=== PATIENT | female | born 1980 | race Asian ===

== ENCOUNTER 2017-06-11 15:21 | Observation (INO) | payer MEDICAID ==
[~2017-06-11] VITALS: Ht 157.5 cm; Wt 52.4 kg
[2017-06-11 15:32] VITALS: BP 101/55; PULSE 71; RESP 18; TEMP 98.1; O2SAT 99
[2017-06-11] MEDS ORDERED: SODIUM CHLOR 0.9% 1000 ML INJ 1,000 ML IV SCH (16:21)
[2017-06-11] MEDS ORDERED: FAMOTIDINE 20 MG/2 ML VIAL IV PUSH ONE (16:30)
[2017-06-11] MEDS ORDERED: MORPHINE SULFATE 4 MG/ML INJ IV PUSH ONE (16:30)
[2017-06-11] MEDS ORDERED: ONDANSETRON HCL 4 MG/2 ML VIAL IVP ONE (16:30)
[2017-06-11] MEDS ORDERED: SODIUM CHLORIDE 0.9% FLUSH 10 ML FLUSH IV FLUSH PRN (16:30)
--- NOTE | 2017-06-11 16:30 | PD ---
HPI Chief Complaint: Abdominal Pain Time Seen by Provider: 16:16 Travel History International Travel<30 days: No Contact w/Intl Traveler<30days: No Traveled to known affect area: No History of Present Illness HPI 36-year-old female complains of abdominal pain with nausea vomiting. Patient states that the symptoms started this morning. Patient states the pain in cramping pain diffuse over the abdomen. Patient denies any pain radiation. Patient denies any dysuria or frequency. Patient denies any vaginal discharge or bleeding. Patient denies any fever chills. Patient states that her last menstruation period was last week. Patient states that her last period was late. Patient denies any GI issues in the past. PFSH Past Medical History Diminished Hearing: No Tetanus Vaccination: Unknown Influenza Vaccination: No ?: Not LMP: LAST WEEK Social History Alcohol Use: No Tobacco Use: No Substance Use: No Allergies-Medications (Allergen,Severity, Reaction): Coded Allergies: No Known Allergies (Unverified , 06/11/17) Reported Meds & Prescriptions Reported Meds & Active Scripts Active No Active Prescriptions or Reported Medications Review of Systems General / Constitutional: No: Fever Eyes: No: Visual changes HENT: No: Headaches Cardiovascular: No: Chest Pain or Discomfort Respiratory: No: Shortness of Breath Gastrointestinal: Positive: Nausea, Vomiting, Abdominal Pain Genitourinary: No: Dysuria Musculoskeletal: No: Pain Skin: No Rash Neurologic: No: Weakness Psychiatric: No: Depression Endocrine: No: Polydipsia Hematologic/Lymphatic: No: Easy Bruising Physical Exam Narrative GENERAL: Well-nourished, well-developed patient. SKIN: Focused skin assessment warm/dry. HEAD: Normocephalic. EYES: No scleral icterus. No injection or drainage. NECK: Supple, trachea midline. No JVD or lymphadenopathy. CARDIOVASCULAR: Regular rate and rhythm without murmurs, gallops, or rubs. RESPIRATORY: Breath sounds equal bilaterally. No accessory muscle use. GASTROINTESTINAL: Abdomen soft, nondistended. Patient has mild diffuse tenderness over the abdomen. No rebound tenderness. No mass. MUSCULOSKELETAL: No cyanosis, or edema. BACK: Nontender without obvious deformity. No CVA tenderness. Data Data Last Documented VS Vital Signs Date Time Temp Pulse Resp B/P (MAP) Pulse Ox O2 Delivery O2 Flow Rate FiO2 06/11/17 15:32 98.1 71 18 101/55 (70) 99 Orders Orders Complete Blood Count With Diff (06/11/17 16:21) Comprehensive Metabolic Panel (06/11/17 16:21) Lipase (06/11/17 16:21) Urinalysis - C+S If Indicated (06/11/17 16:21) Ct Abd/Pel W Iv Contrast(Rout) (06/11/17 16:21) Iv Access Insert/Monitor (06/11/17 16:21) Ecg Monitoring (06/11/17 16:21) Oximetry (06/11/17 16:21) Morphine Inj (Morphine Inj) (06/11/17 16:30) Ondansetron Inj (Zofran Inj) (06/11/17 16:30) Sodium Chlor 0.9% 1000 Ml Inj (Ns 1000 M (06/11/17 16:21) Sodium Chloride 0.9% Flush (Ns Flush) (06/11/17 16:30) Famotidine Inj (Pepcid Inj) (06/11/17 16:30) Ed Urine Pregnancytest Poc (06/11/17 16:21) Iohexol 350 Inj (Omnipaque 350 Inj) (06/11/17 17:46) Labs Laboratory Tests Test 06/11/17 16:21 06/11/17 16:55 Urine Color YELLOW Urine Turbidity CLEAR Urine pH 7.0 Urine Specific [place] 1.027 Urine Protein NEG mg/dL Urine Glucose (UA) NEG mg/dL Urine Ketones 40 mg/dL Urine Occult Blood TRACE Urine Nitrite NEG Urine Bilirubin NEG Urine Leukocyte Esterase NEG Urine RBC 0-3 /hpf Urine WBC 0-2 /hpf Urine Squamous Epithelial Cells 6-8 /hpf Urine White Blood Cell Casts NONE /lpf Urine Mucus FEW /lpf Microscopic Urinalysis Comment CULT NOT INDICATED White Blood Count 24.5 TH/MM3 Red Blood Count 4.58 MIL/MM3 Hemoglobin 12.9 GM/DL Hematocrit 38.8 % Mean Corpuscular Volume 84.7 FL Mean Corpuscular Hemoglobin 28.2 PG Mean Corpuscular Hemoglobin Concent 33.3 % Red Cell Distribution Width 11.4 % Platelet Count 272 TH/MM3 Mean Platelet Volume 8.2 FL Neutrophils (%) (Auto) 87.7 % Lymphocytes (%) (Auto) 4.9 % Monocytes (%) (Auto) 1.9 % Eosinophils (%) (Auto) 0.6 % Basophils (%) (Auto) 4.9 % Neutrophils # (Auto) 21.5 TH/MM3 Lymphocytes # (Auto) 1.2 TH/MM3 Monocytes # (Auto) 0.5 TH/MM3 Eosinophils # (Auto) 0.1 TH/MM3 Basophils # (Auto) 1.2 TH/MM3 CBC Comment DIFF FINAL Differential Comment Blood Urea Nitrogen 16 MG/DL Creatinine 0.70 MG/DL Random Glucose 115 MG/DL Total Protein 9.0 GM/DL Albumin 4.3 GM/DL Calcium Level 8.5 MG/DL Alkaline Phosphatase 74 U/L Aspartate Amino Transf (AST/SGOT) 38 U/L Alanine Aminotransferase (ALT/SGPT) 48 U/L Total Bilirubin 0.5 MG/DL Sodium Level 134 MEQ/L Potassium Level 4.1 MEQ/L Chloride Level 103 MEQ/L Carbon Dioxide Level 21.5 MEQ/L Anion Gap 10 MEQ/L Estimat Glomerular Filtration Rate 96 ML/MIN Lipase 68 U/L MDM Medical Decision Making Medical Screen Exam Complete: Yes Emergency Medical Condition: Yes Interpretation(s) 1830 p.m. Last Impressions Abdomen/Pelvis CT 06/11/17 1621 Signed Impressions: Service Date/Time: Sunday, June 11, 2017 17:42 - CONCLUSION: 1. Enlarged left gonadal vein with prominent left pelvic varicosities. In the appropriate clinical setting, findings could represent pelvic congestion syndrome. Patient' s discomfort would be in the lower left abdomen, particularly at the end of the day. 2. Small, 1.7 cm probable follicular type cysts in the right ovary. Retroverted uterus. 3. Otherwise negative Stephen Becker MD 1832 PM. CBC WBC 24.5. 87 neutrophil. CMP within normal limit. UA is negative. Differential Diagnosis Differential diagnosis including gastritis, PUD, appendicitis, cholecystitis, colitis, UTI, pyelonephritis, nephrolithiasis. Narrative Course 36-year-old female with abdominal pain and nausea vomiting since this morning. Normal saline solution 1 25 cc an hour. Morphine 2 mg IV. Zofran 4 mg IV. Pepcid 20 mg IV. Scripts No Active Prescriptions or Reported Meds Rakesh Cardoza MD Jun 11, 2017 16:30
[2017-06-11 17:10] LABS: AUTOMATED NEUTROPHIL # 21.5 TH/MM3 (1.8-7.7); BASOPHIL # 1.2 TH/MM3 (0-0.2); BASOPHIL % 4.9 % (0.0-2.0); EOSINOPHIL # 0.1 TH/MM3 (0-0.4); EOSINOPHIL % 0.6 % (0.0-4.0); HEMATOCRIT 38.8 % (35.0-46.0); HEMOGLOBIN 12.9 GM/DL (11.6-15.3); LYMPH % 4.9 % (9.0-44.0); LYMPHOCYTE # 1.2 TH/MM3 (1.0-4.8); MEAN CELL VOLUME 84.7 FL (80.0-100.0); MEAN CORPUSCULAR HEMOGLOBIN 28.2 PG (27.0-34.0); MEAN CORPUSCULAR HGB CONC 33.3 % (32.0-36.0); MEAN PLATELET VOLUME 8.2 FL (7.0-11.0); MONO % 1.9 % (0.0-8.0); MONOCYTE # 0.5 TH/MM3 (0-0.9); NEUT % 87.7 % (16.0-70.0); PLATELET COUNT 272 TH/MM3 (150-450); RED BLOOD COUNT 4.58 MIL/MM3 (4.00-5.30); RED CELL DISTRIBUTION WIDTH 11.4 % (11.6-17.2); WHITE BLOOD COUNT 24.5 TH/MM3 (4.0-11.0)
[2017-06-11 17:22] LABS: CHLORIDE 103 MEQ/L (98-107); SODIUM (NA) 134 MEQ/L (136-145)
[2017-06-11 17:24] LABS: BILIRUBIN, URINE NEG (NEG); GLUCOSE,URINE NEG (NEG); KETONE, URINE 40 mg/dL (NEG); NITRITE,URINE NEG (NEG); URINE LEUKOCYTE ESTERASE NEG (NEG)
[2017-06-11 17:25] LABS: CALCIUM 8.5 MG/DL (8.5-10.1)
[2017-06-11 17:26] LABS: ALBUMIN 4.3 GM/DL (3.4-5.0); BICARBONATE 21.5 MEQ/L (21.0-32.0); BLOOD UREA NITROGEN 16 MG/DL (7-18); GLUCOSE,RANDOM 115 MG/DL (74-106); LIPASE 68 U/L (73-393)
[2017-06-11 17:29] LABS: ALT (GPT) 48 U/L (10-53); AST (GOT) 38 U/L (15-37); GLOMERULAR FILTRATION RATE 96 ML/MIN (>89)
[2017-06-11 17:30] LABS: TOTAL BILIRUBIN ADULT 0.5 MG/DL (0.2-1.0)
[2017-06-11 17:32] LABS: ALKALINE PHOSPHATASE 74 U/L (45-117)
[2017-06-11 17:40] LABS: BLOOD, URINE TRACE (NEG)
[2017-06-11] MEDS ORDERED: IOHEXOL 350 MG/ML 10 ML VIAL (for RAD DIAG) IVCONTRAST ONE (17:46)
[2017-06-11 17:55] LABS: MUCUS URINE FEW /lpf (OCC); URINE COLOR YELLOW (YELLW/STRAW)
[2017-06-11 18:00] LABS: RBC, URINE 0-3 /hpf (0-3); WBC, URINE 0-2 /hpf (0-5)
--- NOTE | 2017-06-11 18:06 | RADRPT ---
EXAM DATE/TIME: 06/11/2017 17:42 This report includes an Addendum and supersedes previous reports for this exam. [facility] COMPARISON: No previous studies available for comparison. INDICATIONS : Diffuse abdominal pain with nausea, vomiting and diarrhea. IV CONTRAST: 95 cc Omnipaque 350 (iohexol) IV ORAL CONTRAST: No oral contrast ingested. RADIATION DOSE: 4.80 CTDIvol (mGy) MEDICAL HISTORY : None SURGICAL HISTORY : None. ENCOUNTER: Initial ACUITY: 1 day PAIN SCALE: 4/10 LOCATION: Bilateral abdomen TECHNIQUE: Volumetric scanning of the abdomen and pelvis was performed. Using automated exposure control and ad justment of the mA and/or kV according to patient size, radiation dose was kept as low as reasonably achievable to obtain optimal diagnostic quality images. DICOM format image data is available electro nically for review and comparison. FINDINGS: LOWER LUNGS: The visualized lower lungs are clear. LIVER: Homogeneous density without lesion. There is no dilation of the biliary tree. No calcified gallston es. SPLEEN: Normal size without lesion. PANCREAS: Within normal limits. KIDNEYS: Normal in size and shape. There is no mass, stone or hydronephrosis. ADRENAL GLANDS: Within normal limits. VASCULAR: There is no aortic aneurysm. BOWEL/MESENTERY: The stomach, small bowel, and colon demonstrate no acute abnormality. There is no free intraperitone al air or fluid. ABDOMINAL WALL: Within normal limits. RETROPERITONEUM: There is no lymphadenopathy. BLADDER: No wall thickening or mass. REPRODUCTIVE: Uterus is retroverted. Prominent varicosities predominantly in the left-side of the pelvis with a mar kedly dilated left gonadal vein. Probable small 1.7 cm follicular type cysts in the right ovary. INGUINAL: There is no lymphadenopathy or hernia. MUSCULOSKELETAL: Within normal limits for patient age. CONCLUSION: 1. Enlarged left gonadal vein with prominent left pelvic varicosities. In the appropriate clinical se tting, findings could represent pelvic congestion syndrome. Patient's discomfort would be in the lowe r left abdomen, particularly at the end of the day. 2. Small, 1.7 cm probable follicular type cysts in the right ovary. Retroverted uterus. 3. Otherwise negative Stephen Becker MD on June 11, 2017 at 18:00 Board Certified Radiologist. This report was verified electronically. ADDENDUM: The appendix is flipped into the right midabdomen with tip lying along side the liver edge. It is dil ated with mild surrounding indurative changes. The appearance would be consistent with appendicitis. Dr. Galindo was notified of the findings. Reid Ricardo MD on June 11, 2017 at 21:13 Board Certified Radiologist. This report was verified electronically.
[2017-06-11 18:56] LABS: LYMPHOCYTES 9 % (9-44); MONOCYTES 2 % (0-8); NEUTROPHIL # MANUAL DIFF 21.8 TH/MM3 (1.8-7.7); POLYS (SEG NEUTROPHILS) 89 % (16-70)
[2017-06-11 19:12] VITALS: BP 100/65; PULSE 76; RESP 14; O2SAT 99
--- NOTE | 2017-06-11 21:14 | RADRPT ---
EXAM DATE/TIME: 06/11/2017 19:15 [facility] COMPARISON: CT ABDOMEN & PELVIS W CONTRAST, June 11, 2017, 17:42. INDICATIONS : Right upper quadrant pain. MEDICAL HISTORY : Right upper quadrant pain. Nausea/vomiting. SURGICAL HISTORY : None. ENCOUNTER: Initial ACUITY: 1 day PAIN SCORE: 6/10 LOCATION: Right upper quadrant MEASUREMENTS: LIVER: 15.9 cm length COMMON DUCT: 2 mm RIGHT KIDNEY: 11.4 x 4.5 x 4.1 cm FINDINGS: LIVER: Normal echotexture without focal lesion or ductal dilatation. COMMON DUCT: No intraluminal mass or stone visualized. GALLBLADDER: Contains no stones, demonstrates no wall thickening or pericholecystic fluid. PANCREAS: The visualized portions are within normal limits. RIGHT KIDNEY: No evidence of hydronephrosis, stone, or mass. CONCLUSION: Normal examination. Reid Ricardo MD on June 11, 2017 at 21:08 Board Certified Radiologist. This report was verified electronically.
[2017-06-11] MEDS ORDERED: MORPHINE SULFATE 2 MG/ML INJ IV PUSH PRN (21:30)
[2017-06-11] MEDS ORDERED: ONDANSETRON HCL 4 MG/2 ML VIAL IV PUSH PRN (21:30)
[2017-06-11] MEDS: PIPERACIL-TAZO 3.375 GM PREMIX 50 ML IV SCH (21:30)
[2017-06-11 22:13] VITALS: BP 101/53; TEMP 98.5
--- NOTE | 2017-06-11 22:50 | PD ---
Data Data Last Documented VS Vital Signs Date Time Temp Pulse Resp B/P (MAP) Pulse Ox O2 Delivery O2 Flow Rate FiO2 06/11/17 19:12 76 14 100/65 (77) 99 Room Air 06/11/17 15:32 98.1 Orders Orders Complete Blood Count With Diff (06/11/17 16:21) Comprehensive Metabolic Panel (06/11/17 16:21) Lipase (06/11/17 16:21) Urinalysis - C+S If Indicated (06/11/17 16:21) Ct Abd/Pel W Iv Contrast(Rout) (06/11/17 16:21) Iv Access Insert/Monitor (06/11/17 16:21) Ecg Monitoring (06/11/17 16:21) Oximetry (06/11/17 16:21) Morphine Inj (Morphine Inj) (06/11/17 16:30) Ondansetron Inj (Zofran Inj) (06/11/17 16:30) Sodium Chlor 0.9% 1000 Ml Inj (Ns 1000 M (06/11/17 16:21) Sodium Chloride 0.9% Flush (Ns Flush) (06/11/17 16:30) Famotidine Inj (Pepcid Inj) (06/11/17 16:30) Ed Urine Pregnancytest Poc (06/11/17 16:21) Iohexol 350 Inj (Omnipaque 350 Inj) (06/11/17 17:46) Us Abdomen Gallbladder (06/11/17 18:40) Admit Order (Ed Use Only) (06/11/17 21:27) Dext 5%-Nacl 0.9% 1000 Ml Inj (D5w-Ns 10 (06/11/17 21:30) Morphine Inj (Morphine Inj) (06/11/17 21:30) Piperacil-Tazo 3.375 Gm Premix (Zosyn 3. (06/11/17 21:30) NPO (06/11/17 21:27) Ondansetron Inj (Zofran Inj) (06/11/17 21:30) Vital Signs (Adult) Q4H (06/11/17 21:27) Diet Npo (06/12/17 Breakfast) Activity Oob With Assistance (06/11/17 21:27) Labs Laboratory Tests Test 06/11/17 16:21 06/11/17 16:55 Urine Color YELLOW Urine Turbidity CLEAR Urine pH 7.0 Urine Specific [place] 1.027 Urine Protein NEG mg/dL Urine Glucose (UA) NEG mg/dL Urine Ketones 40 mg/dL Urine Occult Blood TRACE Urine Nitrite NEG Urine Bilirubin NEG Urine Leukocyte Esterase NEG Urine RBC 0-3 /hpf Urine WBC 0-2 /hpf Urine Squamous Epithelial Cells 6-8 /hpf Urine White Blood Cell Casts NONE /lpf Urine Mucus FEW /lpf Microscopic Urinalysis Comment CULT NOT INDICATED White Blood Count 24.5 TH/MM3 Red Blood Count 4.58 MIL/MM3 Hemoglobin 12.9 GM/DL Hematocrit 38.8 % Mean Corpuscular Volume 84.7 FL Mean Corpuscular Hemoglobin 28.2 PG Mean Corpuscular Hemoglobin Concent 33.3 % Red Cell Distribution Width 11.4 % Platelet Count 272 TH/MM3 Mean Platelet Volume 8.2 FL Neutrophils (%) (Auto) 87.7 % Lymphocytes (%) (Auto) 4.9 % Monocytes (%) (Auto) 1.9 % Eosinophils (%) (Auto) 0.6 % Basophils (%) (Auto) 4.9 % Neutrophils # (Auto) 21.5 TH/MM3 Lymphocytes # (Auto) 1.2 TH/MM3 Monocytes # (Auto) 0.5 TH/MM3 Eosinophils # (Auto) 0.1 TH/MM3 Basophils # (Auto) 1.2 TH/MM3 CBC Comment AUTO DIFF Differential Total Cells Counted 100 Neutrophils % (Manual) 89 % Lymphocytes % 9 % Monocytes % 2 % Neutrophils # (Manual) 21.8 TH/MM3 Differential Comment FINAL DIFF MANUAL Platelet Estimate NORMAL Platelet Morphology Comment NORMAL Red Cell Morphology Comment NORMAL Blood Urea Nitrogen 16 MG/DL Creatinine 0.70 MG/DL Random Glucose 115 MG/DL Total Protein 9.0 GM/DL Albumin 4.3 GM/DL Calcium Level 8.5 MG/DL Alkaline Phosphatase 74 U/L Aspartate Amino Transf (AST/SGOT) 38 U/L Alanine Aminotransferase (ALT/SGPT) 48 U/L Total Bilirubin 0.5 MG/DL Sodium Level 134 MEQ/L Potassium Level 4.1 MEQ/L Chloride Level 103 MEQ/L Carbon Dioxide Level 21.5 MEQ/L Anion Gap 10 MEQ/L Estimat Glomerular Filtration Rate 96 ML/MIN Lipase 68 U/L [facility] Supervised Visit with ESHA: No Narrative Course This is a 36-year-old female who I assumed care from Dr. Cardoza. She's had one day of vomiting and right sided abdominal discomfort. She is quite tender in the right mid and upper abdomen. She appears uncomfortable on exam. CT initially had been read as reassuring and the right upper quadrant ultrasound was obtained. Radiologist reviewed both imaging studies and noted that the patient has a dilated appendix with surrounding induration. She has leukocytosis of 24. I suspect she has appendicitis. She will be admitted on IV antibiotics. Case was discussed with Dr. Brooke who will evaluate the patient in the morning. Physician Communication Physician Communication Discussed with Dr. Brooke Diagnosis Primary Impression: Appendicitis Qualified Codes: K35.80 - Unspecified acute appendicitis Admitting Information Admitting Physician Requests: Observation Scripts No Active Prescriptions or Reported Meds Brook Lau MD Jun 11, 2017 22:50
[2017-06-11 23:00] VITALS: BP 97/55; PULSE 77; RESP 16; TEMP 98.1; O2SAT 98
--- NOTE | 2017-06-11 23:27 | HHI.HP ---
HPI Service General surgery Primary Care Physician No Primary Care Physician Admission Diagnosis appendicitis Chief Complaint: Abdominal pain History of Present Illness This is a 36-year-old female who developed abdominal pain early this morning which was diffuse. She went to work but the pain became more and more severe and she presented to the emergency department. She had nausea and about 6 episodes of emesis. She had a couple of normal bowel movements. She denies dysuria or vaginal discharge. Since receiving pain medication the emergency department she's noticed that the pain is localized to the right upper quadrant/ right flank. She was evaluated in the emergency department and noted to have leukocytosis of 24,000. CT of the abdomen and pelvis initially was read as normal but on further consideration it was noted that her appendix appears dilated with surrounding induration and is in the right upper quadrant just under the liver. Review of Systems Constitutional: DENIES: Fever, Chills Eyes: DENIES: Eye inflammation, Eye pain Ears, nose, mouth, throat: DENIES: Oral lesions, Throat pain Respiratory: DENIES: Cough, Shortness of breath Cardiovascular: DENIES: Chest pain, Palpitations Gastrointestinal: COMPLAINS OF: Abdominal pain, Nausea, Vomiting, DENIES: Constipation, Diarrhea Genitourinary: DENIES: Dysuria Integumentary: DENIES: Pruritus, Rash Neurologic: DENIES: Localized weakness, Paresthesias Past Family Social History Past Medical History None Past Surgical History None Reported Medications None Allergies: Coded Allergies: No Known Allergies (Unverified , 06/11/17) Active Ordered Medications Current Medications Medications (Trade) Dose Ordered Sig/Jaycee Route Start Time Stop Time Status Last Admin Sodium Chloride 1,000 ml @ 125 mls/hr Q8H IV 06/11/17 16:21 06/12/17 00:20 06/11/17 16:53 (NS Flush) 2 ml UNSCH PRN IV FLUSH 06/11/17 16:30 Dextrose/Sodium Chloride 1,000 ml @ 100 mls/hr Q10H IV 06/11/17 21:30 (Morphine Inj) 2 mg Q4H PRN IV PUSH 06/11/17 21:30 Piperacillin Sod/ Tazobactam Sod 50 ml @ 100 mls/hr Q6H IV 06/11/17 21:30 06/11/17 21:30 (Zofran Inj) 4 mg Q6HR PRN IV PUSH 06/11/17 21:30 06/11/17 22:28 Family History Noncontributory Social History No alcohol tobacco or drug use. Physical Exam Vital Signs Vital Signs Date Time Temp Pulse Resp B/P (MAP) Pulse Ox O2 Delivery O2 Flow Rate FiO2 06/11/17 22:13 98.5 76 14 101/53 (69) 99 06/11/17 19:12 76 14 100/65 (77) 99 Room Air 06/11/17 19:00 14 06/11/17 15:32 98.1 71 18 101/55 (70) 99 Physical Exam GENERAL: Awake and alert. Cooperative. Appears uncomfortable and is laying on her side with knees bent. Thin. HEAD: Normocephalic. Atraumatic. EYES: Pupils equal round and reactive to light bilaterally. No scleral icterus. CHEST: Lungs clear to auscultation bilaterally with no wheezing or rhonchi. No respiratory distress. CARDIOVASCULAR: Regular rate and rhythm. ABDOMEN: Thin. Soft. Positive rebound tenderness and severe tenderness to palpation in the lateral right upper quadrant EXTREMITIES: No cyanosis or edema. SKIN: Warm, dry, nonjaundiced. Laboratory Laboratory Tests Test 06/11/17 16:21 06/11/17 16:55 Urine Color YELLOW Urine Turbidity CLEAR Urine pH 7.0 Urine Specific [place] 1.027 Urine Protein NEG Urine Glucose (UA) NEG Urine Ketones 40 Urine Occult Blood TRACE Urine Nitrite NEG Urine Bilirubin NEG Urine Leukocyte Esterase NEG Urine RBC 0-3 Urine WBC 0-2 Urine Squamous Epithelial Cells 6-8 Urine White Blood Cell Casts NONE Urine Mucus FEW Microscopic Urinalysis Comment CULT NOT INDICATED White Blood Count 24.5 Red Blood Count 4.58 Hemoglobin 12.9 Hematocrit 38.8 Mean Corpuscular Volume 84.7 Mean Corpuscular Hemoglobin 28.2 Mean Corpuscular Hemoglobin Concent 33.3 Red Cell Distribution Width 11.4 Platelet Count 272 Mean Platelet Volume 8.2 Neutrophils (%) (Auto) 87.7 Lymphocytes (%) (Auto) 4.9 Monocytes (%) (Auto) 1.9 Eosinophils (%) (Auto) 0.6 Basophils (%) (Auto) 4.9 Neutrophils # (Auto) 21.5 Lymphocytes # (Auto) 1.2 Monocytes # (Auto) 0.5 Eosinophils # (Auto) 0.1 Basophils # (Auto) 1.2 CBC Comment AUTO DIFF Differential Total Cells Counted 100 Neutrophils % (Manual) 89 Lymphocytes % 9 Monocytes % 2 Neutrophils # (Manual) 21.8 Differential Comment FINAL DIFF MANUAL Platelet Estimate NORMAL Platelet Morphology Comment NORMAL Red Cell Morphology Comment NORMAL Blood Urea Nitrogen 16 Creatinine 0.70 Random Glucose 115 Total Protein 9.0 Albumin 4.3 Calcium Level 8.5 Alkaline Phosphatase 74 Aspartate Amino Transf (AST/SGOT) 38 Alanine Aminotransferase (ALT/SGPT) 48 Total Bilirubin 0.5 Sodium Level 134 Potassium Level 4.1 Chloride Level 103 Carbon Dioxide Level 21.5 Anion Gap 10 Estimat Glomerular Filtration Rate 96 Lipase 68 Result Diagram: 06/11/175 06/11/171654 Imaging Last Impressions Gall Bladder Ultrasound 06/11/17 1840 Signed Impressions: Service Date/Time: Sunday, June 11, 2017 19:15 - CONCLUSION: Normal examination. Reid Ricardo MD Abdomen/Pelvis CT 06/11/17 1621 Signed Impressions: Service Date/Time: Sunday, June 11, 2017 17:42 - CONCLUSION: 1. Enlarged left gonadal vein with prominent left pelvic varicosities. In the appropriate clinical setting, findings could represent pelvic congestion syndrome. Patient' s discomfort would be in the lower left abdomen, particularly at the end of the day. 2. Small, 1.7 cm probable follicular type cysts in the right ovary. Retroverted uterus. 3. Otherwise negative Stephen Becker MD ADDENDUM: The appendix is flipped into the right midabdomen with tip lying along side the liver edge. It is dilated with mild surrounding indurative changes. The appearance would be consistent with appendicitis. Dr. Galindo was notified of the findings. Reid Ricardo MD Caprini VTE Risk Assessment Caprini VTE Risk Assessment: No/Low Risk (score <= 1) Caprini Risk Assessment Model Point Value = 1 Point Value = 2 Point Value = 3 Point Value = 5 Age 41-60 Minor surgery BMI > 25 kg/m2 Swollen legs Varicose veins or History of unexplained or recurrent spontaneous Oral contraceptives or hormone replacement Sepsis (< 1 month) Serious lung disease, including pneumonia (< 1 month) Abnormal pulmonary function Acute myocardial infarction Congestive heart failure (< 1 month) History of inflammatory bowel disease Medical patient at bed rest Age 61-74 Arthroscopic surgery Major open surgery (> 45 min) Laparoscopic surgery (> 45 min) Malignancy Confined to bed (> 72 hours) Immobilizing plaster cast Central venous access Age >= 75 History of VTE Family history of VTE Factor V Leiden Prothrombin [id number] Lupus anticoagulant Anticardiolipin antibodies Elevated serum homocysteine Heparin-induced thrombocytopenia Other congenital or acquired thrombophilia Stroke (< 1 month) Elective arthroplasty Hip, pelvis, or leg fracture Acute spinal cord injury (< 1 month) Prophylaxis Regimen Total Risk Factor Score Risk Level Prophylaxis Regimen 0-1 Low Early ambulation 2 Moderate Order ONE of the following: *Sequential Compression Device (SCD) *Heparin 5000 units SQ BID 3-4 Higher Order ONE of the following medications: *Heparin 5000 units SQ TID *Enoxaparin/Lovenox 40 mg SQ daily (WT < 150 kg, CrCl > 30 mL/min) *Enoxaparin/Lovenox 30 mg SQ daily (WT < 150 kg, CrCl > 10-29 mL/min) *Enoxaparin/Lovenox 30 mg SQ BID (WT < 150 kg, CrCl > 30 mL/min) AND/OR *Sequential Compression Device (SCD) 5 or more Highest Order ONE of the following medications: *Heparin 5000 units SQ TID (Preferred with Epidurals) *Enoxaparin/Lovenox 40 mg SQ daily (WT < 150 kg, CrCl > 30 mL/min) *Enoxaparin/Lovenox 30 mg SQ daily (WT < 150 kg, CrCl > 10-29 mL/min) *Enoxaparin/Lovenox 30 mg SQ BID (WT < 150 kg, CrCl > 30 mL/min) AND *Sequential Compression Device (SCD) Assessment and Plan Assessment and Plan 36-year-old female who does appear to have acute appendicitis based on her evaluation. It appears the appendix is dilated and inflamed and is up under the liver in the right upper quadrant. I discussed the case in detail with the patient and she desires to proceed. The case be done early tomorrow morning. She will receive a bolus of normal saline due to marginal blood pressure. She is on scheduled Zosyn. Hua Brooke MD Jun 11, 2017 23:27
[2017-06-11] MEDS ORDERED: SODIUM CHLOR 0.9% 1000 ML INJ 1,000 ML IV ONE (23:30)
[2017-06-11] MEDS ORDERED: MORPHINE SULFATE 4 MG/ML INJ IV PUSH PRN (23:30)
[2017-06-12 00:30] VITALS: BP 102/60; PULSE 82; RESP 16; TEMP 98.1; O2SAT 100
[2017-06-12] MEDS: DEXT 5%-NACL 0.9% 1000 ML INJ 1,000 ML IV SCH ×2 (00:47→10:32)
[2017-06-12] MEDS: PIPERACIL-TAZO 3.375 GM PREMIX 50 ML IV SCH (03:15)
[2017-06-12 04:00] VITALS: BP 100/57; PULSE 90; RESP 16; TEMP 99.5; O2SAT 99
[2017-06-12] MEDS ORDERED: BUPIVACAINE/EPINEPHRINE 0.5% 50 ML VIAL ONE (05:56)
[2017-06-12] MEDS ORDERED: SODIUM CHLORID 0.9% 500 ML IV PRN (06:30)
[2017-06-12] MEDS ORDERED: CHLORHEXIDINE GLUCONATE 2 % 1 PACK (2 CLOTHS) TOPICAL PRN (06:30)
[2017-06-12] MEDS ORDERED: LACTATED RINGER'S 1000 ML IV PRN (06:30)
[2017-06-12] MEDS ORDERED: INSULIN HUMAN REGULAR 1,000 UNITS/10 ML VIAL SQ PRN (06:30)
[2017-06-12] MEDS ORDERED: POVIDONE IODINE 5% (ANTISEPSIS KIT) 4 APPLICATIONS EACH NARE PRN (06:30)
[2017-06-12] MEDS ORDERED: fentaNYL CITRATE 250 MCG/5 ML AMP ONE (06:40)
[2017-06-12] MEDS ORDERED: OXYC1TAB63 PO (07:51)
[2017-06-12] MEDS ORDERED: AUGM875T3 PO (07:54)
--- NOTE | 2017-06-12 07:58 | PD.OP ---
cc: Hua Brooke MD Operative Report Date of Surgery: Jun 12, 2017 Preoperative Diagnosis: (1) Appendicitis Postoperative Diagnosis: (1) Appendicitis with abscess Procedure: Laparoscopic appendectomy Anesthesia: GETA Surgeon: Hua Brooke Justice Court Deputy Clerk(s): Staff Operation and Findings: EBL: 20 cc Complications: None apparent Operative findings: The appendix was in the right upper quadrant. This significantly dilated with gangrenous changes. A small appendiceal abscess was encountered and drained. Procedure in detail: The patient was taken to the operating room placed in the supine position with left arm tucked. General endotracheal anesthesia was induced and the abdomen was prepped and draped in usual sterile fashion. Surgical timeout was performed to verify correct patient procedure and site. Perioperative antibiotics were administered as necessary. Local anesthetic was injected in the skin and subcutaneous tissue at the superior umbilicus and a 10 mm incision made. Blunt dissection was used to visualize the anterior fascia which was sharply incised. The peritoneum was entered bluntly. The 10 mm GelPort balloon trocar was placed and the abdomen insufflated to 15 mmHg with CO2 gas which the patient tolerated well. A 5 mm port was placed in the lower midline and a 5 mm placed in the right lower quadrant. The patient was placed in reverse Trendelenburg position and turned to the left. The appendix was encountered inflamed and dilated in the right upper abdomen. It was severely dilated and there were gangrenous changes. Careful dissection bluntly and with Harmonic scalpel was used to separate the appendix from surrounding structures and to take down the mesoappendix. During dissection a small appendiceal abscess was encountered and drained. The suction golf range attendant was used to suction purulent fluid. The appendix was then seen healthy and entering the cecum. Two #1 PDS Endoloops were placed at the base the appendix and the appendix transected with Harmonic scalpel. It was then removed using an Endo Catch bag. The appendiceal stump was intact with no leakage. The right upper quadrant was copiously irrigated and the appendiceal stump was copiously irrigated. The fascia at the 12 mm port site was closed with a single 0 Vicryl suture. Skin closed with subcuticular Monocryl as well as Dermabond. The patient tolerated the procedure well was extubated and taken to PACU in stable condition. Hua Brooke MD Jun 12, 2017 07:58
[2017-06-12] MEDS ORDERED: oxyCODONE/ACETAMINOPHEN 5 MG/325 MG TAB PO PRN ×2 (08:00)
[2017-06-12 08:05] VITALS: PULSE 84
[2017-06-12] MEDS ORDERED: MORPHINE SULFATE 4 MG/ML INJ ONE (08:20)
[2017-06-12] MEDS ORDERED: HYDROmorphone HCL PF 1 MG/ML VIAL ONE (08:25)
[2017-06-12 09:29] VITALS: BP 120/60; PULSE 80; RESP 16; TEMP 98.9; O2SAT 100
[2017-06-12] MEDS ORDERED: PIPERACIL-TAZO 3.375 GM PREMIX 50 ML IV SCH (10:00)
[2017-06-12 12:00] VITALS: BP 92/53; PULSE 96; RESP 20; TEMP 99; O2SAT 97
[2017-06-12] MEDS ORDERED: NEOSTIGMINE 3 MG/3 ML SYR IV ONE (12:00)
[2017-06-12] MEDS ORDERED: ONDANSETRON HCL 4 MG/2 ML VIAL IV PUSH ONE (12:00)
[2017-06-12] MEDS ORDERED: PROPOFOL 200 MG/20 ML AMP IV ONE (12:00)
[2017-06-12 13:29] VITALS: BP 92/53; PULSE 96; RESP 20; TEMP 99; O2SAT 97
--- NOTE | 2017-06-12 14:10 | HHI.DS ---
Discharge Summary Admission Date Jun 11, 2017 at 21:29 Discharge Date: Jun 12, 2017 Admitting Diagnosis appendicitis Procedures Lap appy Brief History This is a 36-year-old female who developed abdominal pain early this morning which was diffuse. She went to work but the pain became more and more severe and she presented to the emergency department. She had nausea and about 6 episodes of emesis. She had a couple of normal bowel movements. She denies dysuria or vaginal discharge. Since receiving pain medication the emergency department she's noticed that the pain is localized to the right upper quadrant/ right flank. She was evaluated in the emergency department and noted to have leukocytosis of 24,000. CT of the abdomen and pelvis initially was read as normal but on further consideration it was noted that her appendix appears dilated with surrounding induration and is in the right upper quadrant just under the liver. CBC/BMP: 06/11/17 1655 06/11/17 1655 Significant Findings Laboratory Tests Test 06/11/17 16:21 06/11/17 16:55 Urine Ketones 40 mg/dL (NEG) Urine Squamous Epithelial Cells 6-8 /hpf (0-5) Urine Mucus FEW /lpf (OCC) White Blood Count 24.5 TH/MM3 (4.0-11.0) Red Cell Distribution Width 11.4 % (11.6-17.2) Neutrophils (%) (Auto) 87.7 % (16.0-70.0) Lymphocytes (%) (Auto) 4.9 % (9.0-44.0) Basophils (%) (Auto) 4.9 % (0.0-2.0) Neutrophils # (Auto) 21.5 TH/MM3 (1.8-7.7) Basophils # (Auto) 1.2 TH/MM3 (0-0.2) Neutrophils % (Manual) 89 % (16-70) Neutrophils # (Manual) 21.8 TH/MM3 (1.8-7.7) Random Glucose 115 MG/DL (74-106) Total Protein 9.0 GM/DL (6.4-8.2) Aspartate Amino Transf (AST/SGOT) 38 U/L (15-37) Sodium Level 134 MEQ/L (136-145) Lipase 68 U/L (73-393) PE at Discharge NAD Abd: soft, inc c/d/i Hospital Course Tolerating liquids post op and pain controlled. Has ambulated. She desires to go home. Pt Condition on Discharge: Good Discharge Disposition: Discharge Home Discharge Instructions DIET: Follow Instructions for: As Tolerated, No Restrictions Activities you can perform: See Additionl Instruction Other Activity Instructions: Avoid heavy lifting. Ok to shower. No driving while on narcotic pain meds. Follow up Referrals: Surgical - 2 Weeks with Hua Brooke MD New Medications: Amoxicillin-Clavulanate (Augmentin) 875-125 Mg Tab 1 TAB PO BID for Infection, #10 TAB 0 Refills Oxycodone-Acetaminophen (Oxycodone-Acetaminophen) 5-325 mg Tab 1-2 TAB PO Q4H PRN for PAIN, #25 TAB 0 Refills Hua Brooke MD Jun 12, 2017 14:10
== END 2017-06-12 16:48 | disposition home or self-care (01) ==
LOC: PHED 15:21 → PHEDA 21:29 → PH3A 22:53
PROVIDERS: ADMIT Surgery; ATTEND Surgery
DX: K35.3 Acute appendicitis with localized peritonitis (principal)
CPT/HCPCS: 00840; 44970; 74177; 76705; 80053; 81001; 83690; 84703; 85007; 85025; 85027; 88304; 96361; 96365; 96375; 96376; 99285; G0378; J1170; J2270; J2405; J2543; J2710; J3010; J7030; J7042; J7120; Q9967